=== PATIENT | male | born 1995 | race Two or more races ===

== ENCOUNTER 2022-02-08 08:04 | Emergency (ER) | payer OTHER ==
[~2022-02-08] VITALS: Ht 172.7 cm; Wt 83.9 kg
[2022-02-08] MEDS ORDERED: ZITHROMAX500 MG PO (11:14)
== END 2022-02-08 11:53 | disposition home or self-care (01) ==
LOC: ER 08:04
DX: J06.9 Acute upper respiratory infection, unspecified (principal); Z20.822 Contact with and (suspected) exposure to COVID-19

== ENCOUNTER 2022-02-13 07:46 | Inpatient (IN) | payer OTHER ==
[~2022-02-13] VITALS: Ht 172.7 cm; Wt 81.6 kg
[~2022-02-13 07:46] MED LIST: ZITHROMAX500 MG PO
--- NOTE | 2022-02-13 07:59 | NUR ---
SE RECIBE PTE ALERTA Y ORIENTADO X3 CUAL REFEIR [facility] EN TODO EL CUERPO. SE TOM S/V Y SE UBICA.
--- NOTE | 2022-02-13 08:53 | NUR ---
PTE ALERTA Y ORIENTADO X3. SE REALIZAN MUESTRAS DE LAB ROLO ORDEN MEDICA Y SE ADMINISTRA MEDICAMENTO ROLO ORDEN MEDICA.
== END 2022-02-14 10:42 | disposition left against medical advice (07) | DRG 866 ==
LOC: ER 07:46 → MEDJ 16:01
PROVIDERS: ADMIT Internal Medicine; ATTEND Internal Medicine
PROC: BW40ZZZ Ultrasonography of Abdomen (ICD-10-PCS; principal; 2022-02-13)
DX: A90 Dengue fever [classical dengue] (principal); D69.6 Thrombocytopenia, unspecified; D72.819 Decreased white blood cell count, unspecified; R68.89 Other general symptoms and signs